=== PATIENT | female | born 1950 | race Caucasian/White ===

== ENCOUNTER 2017-07-19 10:09 | Day surgery (SDC) | payer MEDICARE, OTHER ==
[~2017-07-19] VITALS: Ht 152.4 cm; Wt 66.9 kg
[2017-07-19 11:11] VITALS: Ht 152.4 cm; Wt 66.9 kg
[2017-07-19] MEDS ORDERED: SERT25TA PO (11:15)
[2017-07-19] MEDS ORDERED: ASPI-664 PO (11:15)
[2017-07-19] MEDS ORDERED: OMEPRAZOLE PO (11:15)
[2017-07-19] MEDS ORDERED: MTF1000T PO (11:15)
[2017-07-19] MEDS ORDERED: INSULIN (11:15)
[2017-07-19] MEDS ORDERED: IBUP400T22 PO (11:15)
[2017-07-19] MEDS ORDERED: ALBU18HF INHALATION (11:15)
[2017-07-19] MEDS ORDERED: LOSA50TA6 PO (11:15)
[2017-07-19] MEDS ORDERED: LEVO75TA5 PO (11:15)
[2017-07-19] MEDS ORDERED: AMLO-147 PO (11:15)
[2017-07-19 11:17] VITALS: BP 134/62; PULSE 69; RESP 21
[2017-07-19] MEDS ORDERED: PROPOFOL 20 ML ONE (11:19)
[2017-07-19] MEDS ORDERED: MIDAZOLAM 1 MG/ML 2 ML INJ ONE (11:19)
[2017-07-19] MEDS ORDERED: LIDOCAINE 100 MG SYRINGE ONE (11:19)
--- NOTE | 2017-07-19 11:59 | OPPN ---
Date/Time of Note Date/Time of Note DATE: 07/19/17 TIME: 11:57 Operative Report Preoperative Diagnosis Abdominal pain Positive occult blood in stool Postoperative Diagnosis Hiatal hernia Gastroesophageal reflux disease Gastritis with erosions Gastric mucosal biopsies were taken for H. pylori test Colonoscopy to the cecum 3 small colon polyps removed Internal hemorrhoids Operation/Procedure Performed Esophagogastroduodenoscopy and biopsy Colonoscopy and biopsy Provider: BRAULIO RAJPUT MD Anesthesia Type: MAC Estimated blood loss: none Transfusion Required: no Specimens Gastric mucosal biopsy Biopsy of colon polyps Grafts/Implants: none Complications: no BRAULIO RAJPUT MD Jul 19, 2017 11:59
[2017-07-19 12:02] VITALS: BP 109/55; PULSE 63; RESP 15
--- NOTE | 2017-07-19 12:21 | GILP ---
DATE OF PROCEDURE: 07/19/2017 PROCEDURE PERFORMED: 1. Esophagogastroduodenoscopy and biopsy. 2. Colonoscopy and biopsy. PREOPERATIVE DIAGNOSIS: 1. Abdominal pain. 2. Positive occult blood in stool. POSTOPERATIVE DIAGNOSES: 1. Hiatal hernia. 2. Gastroesophageal reflux disease. 3. Gastritis with erosions. 4. Gastric mucosal biopsies were taken for Helicobacter pylori test. 5. Colonoscopy all the way to the cecum. 6. 3 small colon polyps were removed using the biopsy forceps. 7. Internal hemorrhoids. INDICATION: Ms. Tiburcio Wheatley is a 66-year-old female patient who had upper abdominal pain not responding to therapy. Patient was also noted to have positive occult blood in stool. She was scheduled for endoscopy and colonoscopy for further evaluation. The procedure and possible complications were well explained to the patient. The patient understood and consented to the procedure. DESCRIPTION OF PROCEDURE: Under the influence of anesthesia, the gastroscope was carefully introduced into the esophagus. Under direct vision, it was advanced to the stomach, into the pylorus, into the duodenal bulb, and descending duodenum. FINDINGS: Esophagus: The patient had hiatal hernia and gastroesophageal reflux disease. Stomach: She had gastritis. Gastric mucosal biopsies were taken for Helicobacter pylori test. Duodenum was normal. DESCRIPTION OF PROCEDURE: The colonoscope was carefully introduced in the rectum. Under direct vision, it was advanced all the way to the cecum. FINDINGS: The patient had 3 small colon polyps, and they were removed using the biopsy forceps. She had internal hemorrhoids. She tolerated the procedures very well. There was no complication from the procedures. At the end of the procedure, she was awake with stable vital signs and she was discharged home in care of her family. IMPRESSION: Please see postoperative diagnoses. PLAN: 1. Continue omeprazole. 2. Await histopathology reports. 3. Next screening colonoscopy in 5 years. Dictated By: MD PK Mcdowell/candie/vinnie /Document#: [id number]
== END 2017-07-19 16:06 | disposition home or self-care (01) ==
LOC: GIL 10:09
PROVIDERS: ATTEND Internal Medicine Gastroenterology
DX: K92.1 Melena (principal); K63.5 Polyp of colon; K44.9 Diaphragmatic hernia without obstruction or gangrene; K21.9 Gastro-esophageal reflux disease without esophagitis; K29.60 Other gastritis without bleeding; K64.8 Other hemorrhoids; B96.81 Helicobacter pylori [H. pylori] as the cause of diseases classified elsewhere; E11.9 Type 2 diabetes mellitus without complications; I10 Essential (primary) hypertension; J45.909 Unspecified asthma, uncomplicated
CPT/HCPCS: 43239; 45380; 82962; 87081; J2001; J2250